=== PATIENT | male | born 2000 | race Caucasian/White ===

== ENCOUNTER 2020-01-17 14:13 | Emergency (ER) | payer BC ==
[~2020-01-17] VITALS: Ht 185.4 cm; Wt 72.6 kg
[2020-01-17] MEDS ORDERED: IBUPROFEN 800800 M1 PO (15:59)
[2020-01-17 16:12] VITALS: BP 145/88
== END 2020-01-17 16:13 | disposition home or self-care (01) ==
LOC: M.ERS 14:13
DX: S70.212A Abrasion, left hip, initial encounter (principal); S70.211A Abrasion, right hip, initial encounter; M25.551 Pain in right hip; F17.210 Nicotine dependence, cigarettes, uncomplicated; X58.XXXA Exposure to other specified factors, initial encounter; Y93.89 Activity, other specified; Y92.89 Other specified places as the place of occurrence of the external cause; Y99.8 Other external cause status